=== PATIENT | female | born 1975 ===

== ENCOUNTER 2022-05-13 08:44 | Outpatient (CLI) | payer OTHER | END 2022-05-13 08:47 | disposition home or self-care (01) | LOC: SONOGRAMA 08:44 | PROVIDERS: ATTEND Pathology Anatomic Pathology | DX: E04.1 Nontoxic single thyroid nodule (principal) ==

== ENCOUNTER 2023-06-11 07:15 | Inpatient (IN) | payer OTHER ==
[~2023-06-11] VITALS: Ht 167.6 cm; Wt 63.5 kg
[2023-06-11] MEDS ORDERED: CATAFLAN PO (08:40)
[2023-06-11] MEDS ORDERED: FLEXERIL (08:41)
[2023-06-16 17:40] LABS: HEMATOCRIT 35.6 % (36.0-45.00); HEMOGLOBIN 11.6 g/dL (12.0-15.00); MEAN CELL VOLUME 85.8 fL (80.00-100.00); MEAN CORPUSCULAR HEMOGLOBIN 28.1 pg (27.00-32.0); MEAN CORPUSCULAR HGB CONC 32.7 g/dl (32.0-36.0); PLATELET COUNT 233 K/uL (150-450); RED BLOOD COUNT 4.15 M/uL (4.00-6.00); RED CELL DISTRIBUTION WIDTH 12.8 % (11.5-14.5)
[2023-06-17 11:06] LABS: HEMATOCRIT 34.1 % (36.0-45.00); HEMOGLOBIN 11.4 g/dL (12.0-15.00); MEAN CORPUSCULAR HEMOGLOBIN 28.7 pg (27.00-32.0); MEAN CORPUSCULAR HGB CONC 33.4 g/dl (32.0-36.0); PLATELET COUNT 219 K/uL (150-450); RED BLOOD COUNT 3.96 M/uL (4.00-6.00)
[2023-06-18] MEDS ORDERED: IBUPROFEN800 MG PO (06:21)
[2023-06-18] MEDS ORDERED: GABAPENTIN300 MG PO (06:21)
[2023-06-18] MEDS ORDERED: AMOX1TAB5 PO (06:22)
== END 2023-06-18 11:22 | disposition home or self-care (01) | DRG 743 ==
LOC: OB/GYN 06-16 07:15 → O/R 06-16 07:27 → OB/GYN 06-16 12:45
PROVIDERS: ADMIT Obstetrics & Gynecology Gynecology; ATTEND Obstetrics & Gynecology Gynecology
PROC: 0UT74ZZ Resection of Bilateral Fallopian Tubes, Percutaneous Endoscopic Approach (ICD-10-PCS; 2023-06-16)
PROC: 0UT94ZZ Resection of Uterus, Percutaneous Endoscopic Approach (ICD-10-PCS; principal; 2023-06-16 12:45)
DX: D25.1 Intramural leiomyoma of uterus (principal); Z20.822 Contact with and (suspected) exposure to COVID-19